=== PATIENT | male | born 1955 | race Caucasian/White ===

== ENCOUNTER 2017-02-11 18:48 | Emergency (ER) | payer BC ==
[2017-02-11 18:56] VITALS: RESP 18
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
[2017-02-11] MEDS ORDERED: KETOROLAC 30 MG/ML 1 ML VIAL IVP STA (21:10)
[2017-02-11 21:19] LABS: Basophils # (A) 0.1 k/uL (0-0.2); Basophils % (A) 1 %; CH 32.1; CHCM 34.3; Eosinophils # (A) 0.2 k/uL (0-0.7); Eosinophils % (A) 2 %; HCT 44.4 % (39.0-53.0); HDW 2.36; Luc # (Auto) 0.36; Luc % (Auto) 3; Lymphocytes # (A) 3.8 k/uL (1.0-4.8); Lymphocytes % (A) 36 %; MCH 31.8 pg (25.0-35.0); MCHC 33.8 g/dL (31.0-37.0); MCV 94.1 fL (80.0-100.0); Mean Platelet Volume 8.7; Monocytes # (A) 0.9 k/uL (0-1.0); Monocytes % (A) 9 %; Neutrophils # (A) 5.4 k/uL (1.3-7.7); Neutrophils % (A) 50 %; RBC 4.72 m/uL (4.30-5.90); RDW 13.9 % (11.5-15.5); WBC 10.8 k/uL (3.8-10.6); WBC (Perox) 10.95
[2017-02-11 21:34] LABS: ALT 45 U/L (21-72); AST 28 U/L (17-59); Alkaline Phosphatase 91 U/L (38-126); Amylase 84 U/L (30-110); Anion Gap 14 mmol/L; Blood Urea Nitrogen 24 mg/dL (9-20); Calcium 9.6 mg/dL (8.4-10.2); Carbon Dioxide 21 mmol/L (22-30); Chloride 102 mmol/L (98-107); Glucose 58 mg/dL (74-99); Magnesium 2.1 mg/dL (1.6-2.3); Non-African American GFR(MDRD) 57 (>60 ml/min/1.73 sqM); Partial Thromboplastin Time 24.1 sec (22.0-30.0); Potassium 4.5 mmol/L (3.5-5.1); Prothrombin Time 10.6 sec (9.0-12.0); Sodium 137 mmol/L (137-145); Total Bilirubin 0.8 mg/dL (0.2-1.3); Total Protein 7.4 g/dL (6.3-8.2)
--- NOTE | 2017-02-11 21:34 | XR ---
EXAMINATION TYPE: XR chest 2V DATE OF EXAM: 02/11/2017 COMPARISON: 01/02/2016 HISTORY: Chest pain TECHNIQUE: Frontal and lateral views of the chest are obtained. FINDINGS: There is no heart failure nor confluent pneumonic infiltrate. There is some scarring at th e anterior right middle lobe. There is no pleural effusion. Bony thorax is intact. IMPRESSION: Right middle lobe scarring. Normal heart. No change compared to old exam.
[2017-02-11 21:41] LABS: Creatine Kinase 130 U/L (55-170)
[2017-02-11 21:52] LABS: Creatine Kinase MB 0.9 ng/mL (0.0-2.4); Troponin I <0.012 ng/mL (0.000-0.034)
[2017-02-11 22:28] VITALS: BP 120/74; PULSE 80; TEMP 98
== END 2017-02-11 22:40 | disposition home or self-care (01) ==
LOC: EC 18:48
DX: M94.0 Chondrocostal junction syndrome [Tietze] (principal); I25.10 Atherosclerotic heart disease of native coronary artery without angina pectoris; I10 Essential (primary) hypertension; E07.9 Disorder of thyroid, unspecified; E78.5 Hyperlipidemia, unspecified; Z87.891 Personal history of nicotine dependence; Z79.899 Other long term (current) drug therapy
CPT/HCPCS: 99285; 96374; 36415; 93005; 85379; 83880; 80053; 82150; 82550; 82553; 83690; 83735; 84484; 85025; 85610; 85730; 71020; J1885

== ENCOUNTER → 2017-02-26 | Outpatient (CLI) | payer BC ==
--- NOTE | 2017-02-26 14:35 | US ---
EXAMINATION TYPE: US abdomen complete DATE OF EXAM: 02/26/2017 COMPARISON: MRI liver July 14, 2010. CLINICAL HISTORY: R74.8 Abnormal levels of other serum enzymes. Elevated lipase EXAM MEASUREMENTS: Liver Length: 10.7 cm Gallbladder Wall: 0.3 cm CBD: 0.3 cm Spleen: Right Kidney: 9.6 x 5.0 x 4.6 cm Left Kidney: 9.8 x 5.7 x 3.8 cm Pancreas: limited evaluation due to overlying bowel content Liver: heterogeneous Gallbladder: stone = 2.1cm Evidence for sonographic Giordano's sign: no CBD: appears wnl Spleen: round isoechoic area within area of spleen = 3.2 x 3.0 x 3.3cm, unable to identify a normal appearing spleen Right Kidney: cystic area upper pole = 1.7 x 1.4 x 1.9cm Left Kidney: cystic area upper pole = 2.8 x 2.8 x 2.9cm Upper IVC: wnl Abd Aorta: appears wnl Visualized pancreas is unremarkable. Visualized aorta shows no aneurysmal change. IVC is seen near he patic dome. Liver is heterogeneously hyperechoic in appearance consistent with mild diffuse fatty infiltration. N o worrisome intrahepatic ductal dilatation is seen. Evaluation for focal masses is slightly suboptima l due to the heterogeneity. There is redemonstration of large shadowing gallstone in gallbladder. The re is no pericholecystic fluid or abnormal gallbladder wall thickening. Sonographic Giordano's sign is negative. Common bile duct measures 3 mm in diameter which is within normal limits. Technologist padilla a few si mple appearing cysts in both kidneys. No hydronephrosis is evident bilaterally. There is 3 cm remnant splenule in the left upper quadrant which likely corresponds to 4 cm round lesion on prior MRI. IMPRESSION: Visualized portion of pancreas is within normal limits on this study.
== END | disposition home or self-care (01) ==
LOC: RADUSWWP 12:29
PROVIDERS: ATTEND Family Medicine
DX: R74.8 Abnormal levels of other serum enzymes (principal)
CPT/HCPCS: 76700

== ENCOUNTER 2017-12-19 11:20 | Day surgery (SDC) | payer BC ==
[~2017-12-19 11:20] MED LIST: LACTATED RINGERS 1,000 ML IV SCH; LIDOCAINE 1% 20 ML VIAL (10MG/ML) FOR IV START INTRADERMA PRN
[2017-12-19 12:20] VITALS: RESP 16; TEMP 97
[2017-12-19] MEDS ORDERED: PROPOFOL 10 MG/ML 20 ML VIAL IV ONE (12:59)
[2017-12-19] MEDS ORDERED: KETAMINE 10 MG/ML 20 ML VIAL ONE (12:59)
--- NOTE | 2017-12-19 13:16 | P.PCN ---
Date of Procedure: 12/19/17 Procedure(s) Performed: BRIEF HISTORY: Patient is a 62-year-old pleasant male, scheduled for an elective colonoscopy as a part of screening for colorectal neoplasia. PROCEDURE PERFORMED: Colonoscopy. PREOPERATIVE DIAGNOSIS: Screening for colon cancer. IV sedation per Anesthesia. PROCEDURE: After informed consent was obtained, the patient, was brought into the endoscopy unit. IV sedation was administered by Anesthesia under continuous monitoring. Digital rectal examination was normal. Initially the Olympus CF- 160 flexible video colonoscope was then inserted in the rectum, gradually advanced into the cecum without any difficulty. Careful examination was performed as the scope was gradually being withdrawn. Ileocecal valve and the appendiceal orifice were visualized and appeared normal. Prep was excellent. Mucosa of the cecum, ascending colon, transverse colon, descending colon, sigmoid colon, and rectum appeared normal. Retroflexion was performed in the rectum and grade 2 internal hemorrhoids were seen. Scattered sigmoid diverticulosis seen. The patient tolerated the procedure well. IMPRESSION: Normal-appearing colon from rectum to cecum with no evidence of colorectal neoplasia . Scattered sigmoid diverticulosis Small internal hemorrhoids RECOMMENDATIONS: Findings of this examination were discussed with the patient as well as his family. He was advised to have a repeat screening colonoscopy.
[2017-12-19] MEDS ORDERED: IV FLUID CONTINUATION 1,000 ML IV ONE (13:17)
[2017-12-19 13:40] VITALS: BP 112/74; PULSE 76
== END 2017-12-19 14:05 | disposition home or self-care (01) ==
LOC: ORWHC2ENDO 11:20
PROVIDERS: ATTEND Internal Medicine Gastroenterology
DX: Z12.11 Encounter for screening for malignant neoplasm of colon (principal); K64.1 Second degree hemorrhoids; K57.30 Diverticulosis of large intestine without perforation or abscess without bleeding; I25.10 Atherosclerotic heart disease of native coronary artery without angina pectoris; I10 Essential (primary) hypertension; E78.5 Hyperlipidemia, unspecified; J44.9 Chronic obstructive pulmonary disease, unspecified; K21.9 Gastro-esophageal reflux disease without esophagitis; Z79.890 Hormone replacement therapy; Z79.82 Long term (current) use of aspirin; Z79.899 Other long term (current) drug therapy
CPT/HCPCS: J2704; G0121

== ENCOUNTER → 2020-07-21 | Outpatient (CLI) | payer BC ==
--- NOTE | 2020-07-22 07:52 | CT ---
EXAMINATION TYPE: CT chest wo con DATE OF EXAM: 07/21/2020 COMPARISON: 06/21/2014 HISTORY: Abnormal findings lung field. Pt c/o SOB CT DLP: 292.[address] of the chest was performed with lung and mediastinal window settings submitted. The la ck of contrast limits evaluation of the vascular, mediastinal and parenchymal structures including th e upper abdomen. LUNGS: Left apical parenchymal scarring is redemonstrated. Moderate emphysematous changes are noted t hroughout both lung marie. Right basilar atelectasis. No evidence for focal pneumonia or mass. Small nodular density left upper lobe at its periphery image 16 measures 6 mm. Follow-up in 6 months is ad vised. MEDIASTINUM/JUDY: Thoracic aorta is of normal caliber with limited evaluation given lack of contrast . The heart is not enlarged. No evidence for mediastinal mass. No lymph nodes greater than 1cm. UPPER ABDOMEN: No significant abnormality is seen. OTHER: No significant other abnormality. IMPRESSION: 1. Follow-up for 6 m nodule left upper lobe. 2. Moderately advanced emphysematous changes. Left apical parenchymal scarring.
== END | disposition home or self-care (01) ==
LOC: RADCTMAIN 18:13
PROVIDERS: ATTEND Family Medicine
DX: J98.4 Other disorders of lung (principal); L90.5 Scar conditions and fibrosis of skin; R91.1 Solitary pulmonary nodule
CPT/HCPCS: 71250

== ENCOUNTER → 2021-02-20 | Outpatient (CLI) | payer MEDICARE ==
--- NOTE | 2021-02-20 09:12 | CT ---
EXAMINATION TYPE: CT chest wo con DATE OF EXAM: 02/20/2021 COMPARISON: Prior chest CT July 21, [address] June 21, 2014 HISTORY: Lung nodule CT DLP: 483 mGycm. Automated Exposure Control for Dose Reduction was Utilized. TECHNIQUE: CT scan of the thorax is performed without IV contrast. FINDINGS: LUNGS: Focal moderate left apical parenchymal scarring axial images 5 through 9 redemonstrated unchan ged from prior studies. There is additional scarlike opacity inferior medial and anterior to this red emonstrated slightly more 6 mm nodular in configuration axial image 14 but unchanged from most recen t CT. Background moderate emphysematous changes greatest in the upper lungs redemonstrated. Additiona l mild to moderate anterior linear scarring again seen. No new or enlarging greater than 5 mm pulmona ry nodules or masses. There is no pleural effusion or pneumothorax seen. The tracheobronchial tree i s patent. MEDIASTINUM: Lack of IV contrast is noted to limit evaluation for mediastinal and especially hilar ad enopathy. There are no definitive new greater than 1 cm mediastinal lymph nodes. No cardiomegaly or pericardial effusion is seen. OTHER: Simple-appearing thin-walled cysts in both kidneys are partially imaged. No adrenal masses. IMPRESSION: Chronic changes without acute pulmonary process. Stable scarring and nodular scarring. No new or enlarging greater than 5 mm nodules.
== END | disposition home or self-care (01) ==
LOC: RADCTMAIN 07:46
PROVIDERS: ATTEND Family Medicine
DX: J98.4 Other disorders of lung (principal)
CPT/HCPCS: 71250

== ENCOUNTER → 2021-11-29 | Outpatient (CLI) | payer MEDICARE ==
--- NOTE | 2021-11-29 17:24 | CA ---
Exercise Stress Test Report Name: Quinn Pagan Exam Date: 11/29/2021 08:44 Exam Location: [place] Stress Ht (in): 67 Wt (lb): 155 BSA: 1.81 Ordering Phys: Noah Marinelli MD Referring Phys: Anca Madrid PAC Technologist: Too Webster Age: 66 Gender: M : 1955 Procedure CPT: Indications: Z82.49 family hx heart disease ICD-10 Codes: Patient History: DIFFICULTY IN BREATHING, HTN, ELEVATED CHOLESTEROL LEVELS, FAMILY HX OF HEART DISEASE, COPD, FORMER SMOKER Medications: ABREVA, ALBUTEROL, ASA 81 mg, MULTIVITAMIN, CETIRIZINE, FLUTICASONE, ICAPS AREDS, LEVOTHYROXINE, LISINOPRIL, MONTELUKAST, PRESERVIONS AREDS, TRAZODONE, VITAMIN D, VITAMIN D3 Meds past 24 hrs: Pretest Chest Pain: STRESS TEST Joseph Protocol Exercise Duration (min:sec): 04:[address] Depressions (mm): Angina Score: Villagran Score: Resting HR (bpm): 80 Peak HR (bpm): 112 Resting BP (mmHg): 103 / 66 Peak BP (mmHg): 122 / 65 MPHR: 154 Target HR: 131 % MPHR: 73 METS: 7.1 Total Dose: Peak Dose: Atropine: Double Product: 64698 BP Response: Stress Termination: DYSPNEA UNABLE TO CONTINUE Stress Symptoms: DIFFICULTY IN BREATHING Stress Summary: ECG ANALYSIS Resting ECG: Normal sinus rhythm normal axis normal intervals Stress ECG: Inconclusive secondary to inability to attain target heart rate CONCLUSIONS Poor exercise tolerance Inconclusive stress test due to name related to attain target heart rate patient only attain 71% of predicted maximal heart rate Dr. Trev Ansari MD (Electronically Signed) Final Date: 29 November 2021 17:23
== END | disposition home or self-care (01) ==
LOC: RADNMMAIN 08:20
PROVIDERS: ATTEND Family Medicine
DX: R07.9 Chest pain, unspecified (principal); Z82.49 Family history of ischemic heart disease and other diseases of the circulatory system
CPT/HCPCS: 93017

== ENCOUNTER → 2022-12-17 | Outpatient (CLI) | payer MEDICARE ==
--- NOTE | 2022-12-17 10:06 | CT ---
EXAMINATION TYPE: CT chest wo con DATE OF EXAM: 12/17/2022 COMPARISON: 02/20/2021 HISTORY: Lung nodules, abnormal lung marie CT DLP: 286.30 mGycm, Automated exposure control for dose reduction was used. CONTRAST: Performed injected with 0 mL of Isovue 300. TECHNIQUE: Axial images were obtained at 5 mm thick sections. Reconstructed images are reviewed on [employer] computer in the coronal plane. FINDINGS: Portion of the thyroid visualized is normal. There appears to be some stable scarring at the left apex. Emphysematous changes are present bilatera lly. There is a 0.3 cm nodular density posterior lateral right upper lung field which appears to be new. S eries 4 image 28. There is a 1.1 cm lymph node in the pretracheal space just above the dawood. Additional shotty lymph adenopathy is present. The ascending aorta diameter at the level of the main pulmonary artery is 3.2 cm. The main pulmonary artery diameter at the bifurcation is 2.[address] sections are obtained through the upper abdomen. Upper pole renal cysts are present measur ing 4.2 on the left and 1.9 mm on the right. IMPRESSIONS: 1. New small nodule posterior lateral right upper lung field. Short-term follow-up in 6 months is rec ommended. 2. Emphysematous changes. 3. Enlarged 1.1 cm pretracheal lymph node slightly more prominent than the previous exam.
--- NOTE | 2022-12-17 12:20 | US ---
EXAMINATION TYPE: US arterial LE single level DATE OF EXAM: 12/17/2022 9:09 AM CLINICAL INDICATION: Male, 67 years old with history of G60.9 HEREDITARY AND IDIOPATHIC NEUROPATHY; B ilateral leg pain with R>L History of: Smoker: Previous Hypertension: Takes medication Diabetic: No Hyperlipidemia: Yes TIA/CVA: No Previous Vascular Surgery: No CAD: No CA: No Vascular Ulcers: No Claudication: No Gangrene: No Doppler Waveforms: Right: Multiphasic Left: Multiphasic Right Brachial Pressure: 108 Left Brachial Pressure: 106 Ankle-Brachial Indices: Right: 1.2 Left: 1.2 Toe Brachial Indices: Right: 0.9 Left: 0.9 IMPRESSION: 1. Normal REVA and TBI indices.
--- NOTE | 2022-12-17 12:40 | US ---
EXAMINATION TYPE: US kidneys/renal and bladder DATE OF EXAM: 12/17/2022 COMPARISON: None CLINICAL INDICATION: Male, 67 years old with history of N18.31 CHR KIDNEY DISEASE; Abnormal labs. Re nal cysts. EXAM MEASUREMENTS: Right Kidney: 9.6 x 5.4 x 5.0 cm Left Kidney: 10.4 x 4.4 x 4.6 cm Right Kidney: A couple cysts are seen with largest upper medial cystic lesion = 2.0 x 2.1 x 2.0 cm. N o hydronephrosis. Left Kidney: Upper medial cystic lesion = 5.2 x 4.1 x 4.4 cm. No hydronephrosis. Bladder: distended, anechoic Bilateral Jets seen IMPRESSION: 1. A few scattered benign renal cysts measuring up to 5.2 cm on the left and 2.1 cm on the right. 2. No hydronephrosis.
== END | disposition home or self-care (01) ==
LOC: RADCTMAIN 07:45
PROVIDERS: ATTEND Family Medicine
DX: N18.31 Chronic kidney disease, stage 3a (principal); R91.8 Other nonspecific abnormal finding of lung field; G60.9 Hereditary and idiopathic neuropathy, unspecified; N28.1 Cyst of kidney, acquired; J43.9 Emphysema, unspecified; R91.1 Solitary pulmonary nodule; R59.0 Localized enlarged lymph nodes
CPT/HCPCS: 71250; 76770; 93922

== ENCOUNTER 2023-02-28 01:04 | Observation (INO) | payer MEDICARE ==
[2023-02-28 02:22] LABS: HCT 46.8 % (39.0-53.0); HGB 15.3 gm/dL (13.0-17.5); MCH 31.7 pg (25.0-35.0); MCHC 32.7 g/dL (31.0-37.0); MCV 96.7 fL (80.0-100.0); Mean Platelet Volume 8.8; Platelet Count 200 k/uL (150-450); RBC 4.84 m/uL (4.30-5.90); RDW 13.1 % (11.5-15.5)
[2023-02-28 02:36] LABS: ALT 27 U/L (4-49); AST 37 U/L (17-59); African American GFR (CKD) 69 (>60 ml/min/1.73 sqM); Albumin 4.4 g/dL (3.5-5.0); Alkaline Phosphatase 88 U/L (38-126); Anion Gap 13 mmol/L; Blood Urea Nitrogen 20 mg/dL (9-20); Calcium 9.4 mg/dL (8.4-10.2); Carbon Dioxide 19 mmol/L (22-30); Chloride 104 mmol/L (98-107); Glucose 113 mg/dL (74-99); Non-African American GFR(CKD) 60 (>60 ml/min/1.73 sqM); Potassium 4.7 mmol/L (3.5-5.1); Sodium 136 mmol/L (137-145); Total Bilirubin 0.5 mg/dL (0.2-1.3); Total Protein 7.5 g/dL (6.3-8.2)
[2023-02-28] MEDS ORDERED: AZITHROMYCIN 500 MG TAB PO STA (02:51)
[2023-02-28] MEDS ORDERED: NALOXONE 0.4 MG/ML 1 ML VIAL IVP PRN (03:23)
[2023-02-28] MEDS ORDERED: ACETAMINOPHEN TAB 325 MG TAB PO PRN (03:23)
[2023-02-28 04:00] LABS: Appearance,Urine Clear (Clear); Bilirubin,Urine Negative (Negative); Blood,Urine Negative (Negative); Color,Urine Yellow; Glucose,Urine (UA) Negative (Negative); Ketones,Urine Negative (Negative); Leukocyte Esterase,Urine Negative (Negative); Nitrite,Urine Negative (Negative); PH, Urine 5.5 (5.0-8.0); Protein,Urine Trace (Negative); Specific Gravity,Urine 1.021 (1.001-1.035); Urobilinogen,Urine <2.0 mg/dL (<2.0)
[2023-02-28 04:10] LABS: Band Neutrophils % 1 %; Lymphocytes # (M) 1.54 k/uL (1.0-4.8); Metamyelocytes # (M) 0.11 k/uL (0); Metamyelocytes % 1 %; Monocytes # (M) 1.21 k/uL (0-1.0); Neutrophils % (M) 75 %; Nucleated Red Blood Cells 0 /100 WBC (0-0); Total Cells Counted 200
[2023-02-28] MEDS ORDERED: IPRATROPIUM-ALBUTEROL 3 ML NEB INHALATION PRN (04:31)
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
--- NOTE | 2023-02-28 06:05 | XR ---
EXAM: XR Chest, 2 Views CLINICAL HISTORY: ITS.REASON XR Reason: dyspnea TECHNIQUE: Frontal and lateral views of the chest. COMPARISON: XR Chest dated 11/24/2018 FINDINGS: Lungs: Hyperinflation as on the prior may relate to COPD. No focal consolidation. Pleural space: Unremarkable. No pneumothorax. Heart: Unremarkable. No cardiomegaly. Mediastinum: Unremarkable. Bones/joints: Unremarkable. Upper abdomen: Probable eventration of the right hemidiaphragm. Stable appearance. IMPRESSION: No acute findings in the chest.
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
[2023-02-28] MEDS: dexAMETHasone 2 MG TAB PO SCH ×2 (07:48→07:58)
[2023-02-28] MEDS: ENOXAPARIN 40 MG/0.4 ML SYRINGE SQ SCH (07:58)
[2023-02-28] MEDS ORDERED: IPRATROPIUM-ALBUTEROL 3 ML NEB INHALATION SCH ×2 (08:00)
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
[2023-02-28] MEDS: ALBUTEROL HFA INHALER INHALATION SCH ×4 (08:43→20:55)
[2023-02-28] MEDS: SYMBICORT 160-4.5 MCG INHALER INHALATION SCH ×2 (08:43→20:56)
[2023-02-28] MEDS ORDERED: AZITHROMYCIN 500 MG TAB PO SCH (09:00)
[2023-02-28] MEDS ORDERED: predniSONE 20 MG TAB PO SCH (09:00)
[2023-02-28] MEDS: BENZOCAINE/MENTHOL LOZENG 1 EACH LOZENGE MUCOUS MEM PRN ×2 (11:53→16:49)
[2023-02-28] MEDS ORDERED: LORATADINE 10 MG TAB PO SCH (21:00)
[2023-02-28] MEDS ORDERED: traZODone HCL 100 MG TAB PO SCH (21:00)
[2023-02-28] MEDS ORDERED: MONTELUKAST 10 MG TAB PO SCH (21:00)
[2023-03-01] MEDS ORDERED: LEVOTHYROXINE 100 MCG TAB PO SCH (06:30)
[2023-03-01] MEDS ORDERED: SYMBICORT 80-4.5 MCG INHALER INHALATION SCH (08:00)
[2023-03-01] MEDS ORDERED: IPRATROPIUM 0.5 MG/2.5 ML NEBU INHALATION SCH (08:00)
[2023-03-01 08:41] VITALS: BP 102/69; RESP 18; TEMP 97.6
[2023-03-01] MEDS: ALBUTEROL HFA INHALER INHALATION SCH (08:41)
[2023-03-01 08:59] VITALS: PULSE 72
[2023-03-01] MEDS ORDERED: ATORVASTATIN 20 MG TAB PO SCH (09:00)
[2023-03-01] MEDS ORDERED: VIT A,C & E-LUTEIN-MINERALS 1 EACH TAB PO SCH (09:00)
[2023-03-01] MEDS ORDERED: MULTIVITAMINS, THERA 1 EACH TAB PO SCH (09:00)
[2023-03-01] MEDS ORDERED: CHOLECALCIFEROL 25 MCG (1000 IU) TABLET PO SCH (09:00)
[2023-03-01] MEDS ORDERED: lisinopriL 10 MG TAB PO SCH (09:00)
[2023-03-01] MEDS ORDERED: ASPIRIN 81 MG PO SCH (09:00)
[2023-03-01] MEDS: ENOXAPARIN 40 MG/0.4 ML SYRINGE SQ SCH (09:53)
[2023-03-01] MEDS: dexAMETHasone 2 MG TAB PO SCH (09:53)
--- NOTE | 2023-03-01 12:03 | P.DS ---
Providers Date of admission: 02/28/23 03:23 Expected date of discharge: 03/01/23 Attending physician: Adonay Gu MD Consults: 02/28/23 04:31 Consult Physician Urgent Consulting Provider: Sterling Hogue Consult Reason/Comments: COPD, COVID Do you want consulting provider notified?: Yes Primary care physician: Noah Marinelli Hospital Course: Discharge Diagnosis: Acute hypoxic respiratory failure COVID-19 infection COPD, without exacerbation Status post splenectomy Hypothyroidism Dyslipidemia Hospital Course: 67-year-old male with a PMH of COPD, status post splenectomy, hypothyroidism, and hyperlipidemia who presents to the emergency room with complaints of fever, myalgias, sore throat, and cough. In the emergency room, vital signs upon arrival were SpO2 88% on room air, pulse 109, temp 97.9F, and BP 129/78. Laboratory evaluation was remarkable for leukocytosis of 11.0, COVID-19 testing positive, and sodium 136. CXR revealed chronic COPD findings. Pulmonology consulted. Patient started on Decadron. Now on room air. Being discharged on oral steroids. Patient seen and examined at bedside. Vital signs reviewed and stable. General: nontoxic, no distress, appears at stated age Derm: warm, dry Head: atraumatic, normocephalic, symmetric Eyes: EOMI, no lid lag, anicteric sclera Mouth: no lip lesion, mucus membranes moist Cardiovascular: S1S2 reg, no murmur Lungs: CTA bilateral, no rhonchi, no rales , no accessory muscle use Abdominal: soft, nontender to palpation, no guarding, no appreciable organomegaly Ext: no gross muscle atrophy, no edema, no contractures Neuro: CN II-XI grossly intact, no focal neuro deficits Psych: Alert, oriented, appropriate affect A total of 33 minutes of time were spent preparing this complex discharge charanjit laurent. Patient was discharged on 03/01/23 at 10:37. Patient Condition at Discharge: Stable Plan - Discharge Summary Discharge Rx Participant: No New Discharge Prescriptions: New dexAMETHasone ORAL [Hexadrol] 6 mg PO DAILY #8 tab Continue Aspirin 81 mg PO DAILY Levothyroxine Sodium [Synthroid] 100 mcg PO QAM Multivitamin/Iron/Folic Acid [Centrum Complete Multivit Tab] 1 tab PO DAILY Albuterol Inhaler [Ventolin Hfa Inhaler] 1 - 2 puff INHALATION RT-Q6H PRN PRN Reason: Shortness Of Breath Atorvastatin [Lipitor] 20 mg PO QAM Vit C/E/Zn/Coppr/Lutein/Zeaxan [Preservision Areds 2 Softgel] 1 cap PO DAILY Montelukast [Singulair] 10 mg PO HS Cetirizine HCl [Zyrtec] 10 mg PO HS Cholecalciferol [Vitamin D3 (25 Mcg = 1000 Iu)] 25 mcg PO DAILY lisinopriL [Zestril] 10 mg PO DAILY Fluticasone/Umeclidin/Vilanter [Trelegy Ellipta 100-62.5-25] 1 puff INHALATION RT-DAILY traZODone HCL [Desyrel] 100 mg PO HS Discharge Medication List Aspirin 81 mg PO DAILY 06/21/14 [History] Levothyroxine Sodium [Synthroid] 100 mcg PO QAM 06/21/14 [History] Multivitamin/Iron/Folic Acid [Centrum Complete Multivit Tab] 1 tab PO DAILY 06/21/14 [History] Albuterol Inhaler [Ventolin Hfa Inhaler] 1 - 2 puff INHALATION RT-Q6H PRN 02/11/17 [History] Atorvastatin [Lipitor] 20 mg PO QAM 02/11/17 [History] Vit C/E/Zn/Coppr/Lutein/Zeaxan [Preservision Areds 2 Softgel] 1 cap PO DAILY 12/17/17 [History] Cetirizine HCl [Zyrtec] 10 mg PO HS 02/28/23 [History] Cholecalciferol [Vitamin D3 (25 Mcg = 1000 Iu)] 25 mcg PO DAILY 02/28/23 [History] Fluticasone/Umeclidin/Vilanter [Trelegy Ellipta 100-62.5-25] 1 puff INHALATION RT-DAILY 02/28/23 [History] Montelukast [Singulair] 10 mg PO HS 02/28/23 [History] lisinopriL [Zestril] 10 mg PO DAILY 02/28/23 [History] traZODone HCL [Desyrel] 100 mg PO HS 02/28/23 [History] dexAMETHasone ORAL [Hexadrol] 6 mg PO DAILY #8 tab 03/01/23 [Rx] Follow up Appointment(s)/Referral(s): Noah Marinelli MD [Primary Care Provider] - 1 Week Patient Instructions/Handouts: COVID-19 (Coronavirus Disease 2019) (DC) Activity/Diet/Wound Care/Special Instructions: Please see your PCP. Discharge Disposition: HOME SELF-CARE
--- NOTE | 2023-03-01 12:20 | P.PN ---
Subjective Progress Note Date: 03/01/23 67-year-old male, who presented to the emergency department, complaining of fever, muscle aches, sore throat, and cough. The patient has been feeling well for about 3 or 4 days. The patient came to the emergency room where he was evaluated, and tested positive for coronavirus. His chest x-ray was normal. He does have a history of underlying COPD. He sees one of my partners for his COPD but hasn't been in the office in January 2021. Apparently, his FEV1 percent is only about 49 or 50%. 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 The patient typically uses albuterol and Trelegy. His primary care physician is Dr. Marinelli. 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 Currently he is on 3 L. Saturations are 98%. He's not receiving any IV fluids. He's currently on albuterol inhaler, Symbicort inhaler, and Decadron 6 mg a day. White count 11, hemoglobin 15.3, hematocrit 46.8, with a normal platelet count. Sodium 136, potassium 4.7, chlorides 104, CO2 19, anion gap 13, BUN 20, creatinine 1.25. Urine is negative. He did test positive for coronavirus. Chest x-ray shows no acute disease. The patient is seen today 03/01/2023 in follow-up on the regular medical floor. He is currently sitting up in bed. Awake and alert in no acute distress. Maintaining good O2 saturations in the 90s on room air. Chest x-ray did not show any acute pulmonary process. Pro-calcitonin was 0.09. Antibiotics were discontinued. He remains on Decadron, Lovenox for DVT prophylaxis, and vitamin supplements. Objective - Vital Signs Vital signs: Vital Signs Temp 97.6 F 03/01/23 07:00 Pulse 72 03/01/23 08:52 Resp 18 03/01/23 07:00 BP 102/69 03/01/23 07:00 Pulse Ox 93 L 03/01/23 07:00 FiO2 Intake & Output 02/28/23 03/01/23 03/01/23 18:59 06:59 18:59 Intake Total 236 Balance 236 Weight 70.307 kg Intake: Oral 236 Other: Voiding Method Toilet Toilet # Voids 2 1 - Exam GENERAL EXAM: Alert, pleasant 67-year-old male, on room air, comfortable in no apparent distress. HEAD: Normocephalic. EYES: Normal reaction of pupils, equal size. NOSE: Clear with pink turbinates. THROAT: No erythema or exudates. NECK: No masses, no JVD. CHEST: No chest wall deformity. LUNGS: Equal air entry with no crackles, wheeze, rhonchi or dullness. CVS: S1 and S2 normal with no audible murmur, regular rhythm. ABDOMEN: No hepatosplenomegaly, normal bowel sounds, no guarding or rigidity. SPINE: No scoliosis or deformity SKIN: No rashes CENTRAL NERVOUS SYSTEM: No focal deficits, tone is normal in all 4 extremities. EXTREMITIES: There is no peripheral edema. No clubbing, no cyanosis. Peripheral pulses are intact. - Labs CBC & Chem 7: 02/28/23 01:52 02/28/23 01:52 Assessment and Plan Assessment: Acute coronavirus infection, without coronavirus associated pneumonia. History of COPD, not particularly active at this time. Previous history of splenectomy. History of hypertension. History of hypothyroidism. History of hyperlipidemia. Prior history of splenectomy. History of gastroesophageal reflux disease. History of nephrolithiasis. Plan: The patient is seen and evaluated Currently stable and on room air Remains on Decadron, Lovenox, vitamin supplements Cleared for discharge from pulmonary standpoint Continue his home pulmonary medications Complete 10 days of Decadron I have personally seen and examined the patient, performed the documentation and the assessment and plan as written. Number of minutes spent on the visit: 10.
== END 2023-03-01 11:52 | disposition home or self-care (01) ==
LOC: EC 01:04 → 6NMEDSUR 03:23
PROVIDERS: ADMIT Internal Medicine; ATTEND Internal Medicine
DX: U07.1 COVID-19 (principal); J96.01 Acute respiratory failure with hypoxia; J44.9 Chronic obstructive pulmonary disease, unspecified; E03.9 Hypothyroidism, unspecified; E78.5 Hyperlipidemia, unspecified; I10 Essential (primary) hypertension; I25.10 Atherosclerotic heart disease of native coronary artery without angina pectoris; K21.9 Gastro-esophageal reflux disease without esophagitis; Z79.82 Long term (current) use of aspirin; Z79.899 Other long term (current) drug therapy; Z79.890 Hormone replacement therapy; Z90.81 Acquired absence of spleen; Z87.891 Personal history of nicotine dependence; Z87.442 Personal history of urinary calculi; Z87.828 Personal history of other (healed) physical injury and trauma
CPT/HCPCS: 96372 ×2; 96365; 99284; 36415; 94640 ×4; 94760; 93005; 80053; 83605; 84484; 85025; 81003; 87040; 84145; 87636; 71046; G0378 ×2; J0696; J1650 ×2; J8540 ×2

== ENCOUNTER → 2023-06-09 | Outpatient (CLI) | payer MEDICARE ==
--- NOTE | 2023-06-09 13:13 | CT ---
EXAMINATION TYPE: CT chest wo con CT DLP: 306.6 mGycm, Automated exposure control for dose reduction was used. DATE OF EXAM: 06/09/2023 8:58 AM COMPARISON: CTs 12/17/2022 and 02/20/2021. CLINICAL INDICATION:Male, 67 years old with history of R91.1 pulmonary nodule; PHH, pulmonary nodule TECHNIQUE: Multiple axial images were obtained through the chest. Sagittal and coronal reformats were created for review. Contrast used: mL of (None if empty) Oral contrast used: (None if empty) FINDINGS: Examination limited by lack of IV contrast. LUNGS/ PLEURA: Moderate emphysematous changes bilaterally. Linear areas of scarring and presumed scar ring with stable small nodular component in the left upper lobe, up to 6 mm image 17 series 4. A righ t upper lobe posterior lateral 3 mm nodule identified on the last exam is no longer evident. Stable s ubpleural semicircular nodule in the lateral left lower lobe measuring 8 mm wide at its base. Lungs o therwise appear unchanged. There is no evidence of new or enlarging nodule, mass, consolidation, pleu ral effusion, or pneumothorax. AIRWAY: Central airways are patent. LOWER NECK: No significant findings. MEDIASTINUM: Stable precarinal lymph node measuring 1.1 cm short axis. No new or enlarging nodes.. HEART: Normal heart size. No significant coronary artery calcification. Trace pericardial fluid. VASCULATURE: Mild atherosclerotic calcifications of the aorta and branches. Ascending aorta is 3.3 C M, descending is 2.7 CM. Aorta is considered normal in size. Pulmonary trunk measures 2.6 CM. Vessel s otherwise not further assessed without contrast. SOFT TISSUES/LYMPH NODES: Unremarkable soft tissues. No axillary adenopathy. UPPER ABDOMEN: Possible small sliding hiatal hernia. Nonenlarged upper abdominal nodes. MUSCULOSKELETAL: No acute osseous abnormality. Mild disc degeneration changes are present throughout the included thoracolumbar spine. IMPRESSION: Overall stable exam, with moderate bilateral emphysema and stable areas of scarring/nodularity.
== END | disposition home or self-care (01) ==
LOC: RADCTMAIN 08:38
PROVIDERS: ATTEND Internal Medicine Critical Care Medicine
DX: J43.9 Emphysema, unspecified (principal); R91.1 Solitary pulmonary nodule
CPT/HCPCS: 71250

== ENCOUNTER 2023-07-07 12:17 | Emergency (ER) | payer MEDICARE ==
[2023-07-07] MEDS ORDERED: SODIUM CHLORIDE 0.9% 1,000 ML IV STA (12:49)
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
[2023-07-07 13:14] LABS: Basophils % (A) 1 %; Eosinophils # (A) 0.1 k/uL (0-0.7); Eosinophils % (A) 1 %; HCT 44.8 % (39.0-53.0); HGB 15.2 gm/dL (13.0-17.5); Lymphocytes # (A) 1.3 k/uL (1.0-4.8); Lymphocytes % (A) 16 %; MCH 32.7 pg (25.0-35.0); MCHC 33.8 g/dL (31.0-37.0); MCV 96.8 fL (80.0-100.0); Mean Platelet Volume 8.5; Monocytes # (A) 0.4 k/uL (0-1.0); Monocytes % (A) 4 %; Neutrophils # (A) 6.7 k/uL (1.3-7.7); Neutrophils % (A) 78 %; Platelet Count 206 k/uL (150-450); RBC 4.63 m/uL (4.30-5.90); RDW 13.8 % (11.5-15.5); WBC 8.7 k/uL (3.8-10.6)
[2023-07-07 13:27] LABS: ALT 35 U/L (4-49); AST 40 U/L (17-59); African American GFR (CKD) 68 (>60 ml/min/1.73 sqM); Albumin 4.4 g/dL (3.5-5.0); Alkaline Phosphatase 82 U/L (38-126); Anion Gap 10 mmol/L; Blood Urea Nitrogen 25 mg/dL (9-20); Calcium 9.4 mg/dL (8.4-10.2); Carbon Dioxide 22 mmol/L (22-30); Chloride 106 mmol/L (98-107); Glucose 139 mg/dL (74-99); Non-African American GFR(CKD) 59 (>60 ml/min/1.73 sqM); Sodium 138 mmol/L (137-145); Total Bilirubin 0.5 mg/dL (0.2-1.3); Total Protein 7.2 g/dL (6.3-8.2)
--- NOTE | 2023-07-07 13:27 | XR ---
EXAMINATION TYPE: XR chest 2V DATE OF EXAM: 07/07/2023 1:20 PM CLINICAL INDICATION:Male, 67 years old with history of Chest Pain; COMPARISON: Chest radiographs from [id number] TECHNIQUE: XR chest 2V Frontal and lateral views of the chest. FINDINGS: Lungs/Pleura: Prominent interstitial lung markings are seen scattered throughout the lungs with dane ening of the diaphragm and increased lucency of the lung apices. No evidence of focal consolidation, pneumothorax or pleural effusion. Pulmonary vascularity: Unremarkable. Heart/mediastinum: Cardiomediastinal silhouette is unremarkable. Musculoskeletal: No acute osseous pathology. IMPRESSION: 1. No acute cardiopulmonary disease process. 2. COPD changes.
[2023-07-07 13:28] LABS: Potassium 4.5 mmol/L (3.5-5.1)
--- NOTE | 2023-07-07 16:02 | CT ---
EXAMINATION TYPE: CT chest angio for PE DATE OF EXAM: 07/07/2023 COMPARISON: June 09, 2023 HISTORY: D-dimer elevated. Episode of syncope. CT DLP: 296.1 mGycm CONTRAST: CT chest with contrast and 3D reconstruction with MIP imaging is performed with IV Contrast, patient injected with 100 ml mL of Isovue 370. Contrast-enhanced CT of the chest was performed through the course of the pulmonary arteries with angelic g and mediastinal window settings submitted. 3D reconstruction with MIP imaging was also performed. PULMONARY ARTERIES: The pulmonary arteries and their major tributaries are patent. I do not see viraj dence for sizable filling defect to suggest pulmonary embolic process. LUNGS: Left apical left upper lobe parenchymal scarring. Moderate emphysematous change. Scattered par enchymal scarring. No evidence for atelectasis. No pulmonary nodule or mass is detected. No pleura l effusion. MEDIASTINUM: Thoracic aorta is of normal caliber,however, evaluation is limited given timing of the contrast bolus. If there is concern for thoracic aortic pathology consider KANA. Correlate clinicall y . The heart is not enlarged. No evidence for mediastinal mass. No mediastinal lymph nodes greater than 1cm. HILAR STRUCTURES: No evidence for mass. No hilar lymph nodes greater than 1 cm. UPPER ABDOMEN: No significant abnormality is seen. IMPRESSION: 1. No evidence for Pulmonary embolism at this time.
[2023-07-07 17:25] VITALS: BP 109/71; PULSE 85; RESP 118; TEMP 98.1
== END 2023-07-07 17:18 | disposition home or self-care (01) ==
LOC: EC 12:17
DX: J11.1 Influenza due to unidentified influenza virus with other respiratory manifestations (principal); R55 Syncope and collapse; R00.0 Tachycardia, unspecified; E78.5 Hyperlipidemia, unspecified; I25.10 Atherosclerotic heart disease of native coronary artery without angina pectoris; J44.9 Chronic obstructive pulmonary disease, unspecified; I10 Essential (primary) hypertension; E07.9 Disorder of thyroid, unspecified; Z87.891 Personal history of nicotine dependence; Z79.82 Long term (current) use of aspirin; Z79.899 Other long term (current) drug therapy; Z79.890 Hormone replacement therapy; Z79.51 Long term (current) use of inhaled steroids; Z20.822 Contact with and (suspected) exposure to COVID-19
CPT/HCPCS: 36415; 93005; 85379; 80053; 83735; 84484; 85025; 85610; 85730; 87636; 71046; 71275; 99285; 96360; 96361; Q9967

== ENCOUNTER → 2023-11-28 | Outpatient (CLI) | payer MEDICARE ==
--- NOTE | 2023-11-28 16:42 | CA ---
Lexiscan Nuclear Stress Test Report Name: Quinn Pagan Exam Date: 11/28/2023 10:29 Exam Location: [place] Stress Ht (in): 66 Wt (lb): 152 BSA: 1.78 Ordering Phys: Shun Simmons MD Referring Phys: Anca Madrid PAC Technologist: Too Webster Age: 68 Gender: M : 1955 Procedure CPT: Indications: R06.09 Other forms of dyspnea ICD-10 Codes: Patient History: Medications: SEE LIST Meds past 24 hrs: Pretest Chest Pain: STRESS TEST Lexiscan Protocol Exercise Duration (min:sec): 01:[address] Depressions (mm): Angina Score: Villagran Score: Resting HR (bpm): 63 Peak HR (bpm): 91 Resting BP (mmHg): 110 / 72 Peak BP (mmHg): 116 / 64 MPHR: 152 Target HR: 129 % MPHR: 60 METS: 1.0 Total Dose: Peak Dose: Atropine: Double Product: 21778 BP Response: Stress Termination: INFUSION COMPLETE Stress Symptoms: NO SYMPTOMS Stress Summary: ECG ANALYSIS Resting ECG: Stress ECG: CONCLUSIONS RESTING EKG: [Normal sinus rhythm, normal EKG] , Patient recieved IV infusion of Lexiscan 0.4mg and at peak infusion STRESS EKG showed: [No significant ST-T wave changes diagnostic for ischemia by ST segment analysis] ARRYTHMIAS: [No ectopic rhythms or sustained arrythmias] CONCLUSION: 1. Normal hemodynamic and clinical response to Lexiscan infusion. 2. Non-ischemic EKG response to lexiscan infusion Please refer to the nuclear imaging portion of this stress test for complete interpretation of the study. Dr Antonio Gallagher (Electronically Signed) Final Date: 28 November 2023 16:41
--- NOTE | 2023-11-29 16:20 | NM ---
EXAMINATION TYPE: NM stress lexiscan cardiolite DATE OF EXAM: 11/28/2023 COMPARISON: NONE CLINICAL INDICATION: Male, 68 years old with history of R06.09 OTHER FORMS OF DYSPNEA; TECHNIQUE: After the intravenous administration of 10.2 mCi Tc 99m Sestamibi - Cardiolite resting SP ECT images acquired 45 minutes post injection. The patient received 0.4mg Lexiscan, 26.5 mCi Tc 99m Sestamibi - Stress images obtained [address] injection FINDINGS: Review of stress and rest SPECT images demonstrates a small area of fixed perfusion defect along the inferolateral apical wall which accentuates on stress. Gated analysis shows normal wall motion with a n estimated left ventricular ejection fraction of 65 %. TID is calculated at 1.04, within normal trevizo its. IMPRESSION: Findings suggest possible small area of previous infarct inferolateral apical wall with inducible per i-infarct ischemia which extends to the mid inferior wall.
== END | disposition home or self-care (01) ==
LOC: RADNMMAIN 08:30
PROVIDERS: ATTEND Family Medicine
DX: R06.09 Other forms of dyspnea (principal)
CPT/HCPCS: 93017; 78452; A9500

== ENCOUNTER 2024-07-30 08:56 | Emergency (ER) | payer MEDICARE ==
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
[2024-07-30 10:07] LABS: Basophils % (A) 0 %; Eosinophils # (A) 0.1 k/uL (0-0.7); Eosinophils % (A) 1 %; HCT 50.4 % (39.0-53.0); HGB 15.9 gm/dL (13.0-17.5); Lymphocytes # (A) 1.3 k/uL (1.0-4.8); Lymphocytes % (A) 13 %; MCHC 31.6 g/dL (31.0-37.0); Mean Platelet Volume 8.5; Monocytes % (A) 9 %; Neutrophils # (A) 7.6 k/uL (1.3-7.7); Neutrophils % (A) 75 %; Platelet Count 250 k/uL (150-450); RBC 5.14 m/uL (4.30-5.90); WBC 10.1 k/uL (3.8-10.6)
[2024-07-30 10:11] LABS: Influenza A Detected (Not Detectd); Influenza B Not Detected (Not Detectd); RSV Not Detected (Not Detectd)
[2024-07-30] MEDS: methylPREDNISolone SOD SUCCI 125 MG/2 ML VIAL IV STA (10:12)
[2024-07-30 10:15] LABS: Partial Thromboplastin Time 23.2 sec (22.0-30.0); Prothrombin Time 10.7 sec (10.0-12.5)
[2024-07-30 10:23] LABS: ALT 55 U/L (4-49); AST 49 U/L (17-59); African American GFR (CKD) 70 (>60 ml/min/1.73 sqM); Albumin 4.9 g/dL (3.5-5.0); Alkaline Phosphatase 83 U/L (38-126); Anion Gap 15 mmol/L; Blood Urea Nitrogen 21 mg/dL (9-20); Calcium 9.8 mg/dL (8.4-10.2); Carbon Dioxide 23 mmol/L (22-30); Chloride 100 mmol/L (98-107); Glucose 82 mg/dL (74-99); Magnesium 2.1 mg/dL (1.6-2.3); Non-African American GFR(CKD) 60 (>60 ml/min/1.73 sqM); Potassium 4.8 mmol/L (3.5-5.1); Sodium 138 mmol/L (137-145); Total Bilirubin 0.6 mg/dL (0.2-1.3); Total Protein 7.7 g/dL (6.3-8.2)
--- NOTE | 2024-07-30 10:25 | XR ---
EXAMINATION TYPE: XR chest 2V DATE OF EXAM: 07/30/2024 10:21 AM COMPARISON: 07/07/2023 CLINICAL INDICATION: Male, 68 years old with history of difficulty breathing, TECHNIQUE: XR chest 2V view(s) obtained. FINDINGS: The heart size is normal. The pulmonary vasculature is normal. Some mild subsegmental atelectasis may be at the lung bases similar comparison.. Hyperinflation with diaphragms is present with COPD IMPRESSION: 1. Mild bibasilar subsegmental atelectasis. 2. COPD [facility], , 07/30/2024 10:23 AM
[2024-07-30] MEDS: IPRATROPIUM-ALBUTEROL 3 ML NEB INHALATION STA ×3 (11:09→11:53)
[2024-07-30 11:41] VITALS: RESP 19; TEMP 98.6
[2024-07-30] MEDS: OSELTAMIVIR 75 MG CAP PO STA (12:53)
[2024-07-30 13:01] VITALS: BP 116/75; PULSE 106
== END 2024-07-30 13:05 | disposition home or self-care (01) ==
LOC: EC 08:56
DX: J10.1 Influenza due to other identified influenza virus with other respiratory manifestations (principal); Z87.891 Personal history of nicotine dependence
CPT/HCPCS: 36415; 94640 ×2; 93005; 80053; 83605; 83735; 84484; 85025; 85610; 85730; 87636; 71046; 99285; 96374; J2919